=== PATIENT | male | born 1940 | race Caucasian/White ===

== ENCOUNTER 2016-05-09 18:01 | Emergency (ER) | payer MEDICARE, BC ==
[2016-06-22] MEDS ORDERED: LIPITOR20 MG PO (09:25)
[2016-06-22] MEDS ORDERED: NORVASC10 MG PO (09:25)
[2016-06-22] MEDS ORDERED: METOPROLOL TART25 MG PO (09:46)
[2016-06-22] MEDS ORDERED: BUSPIRONE HCL10 MG PO (09:46)
[2016-06-22] MEDS ORDERED: COLACE100 MG PO (09:46)
[2016-06-22] MEDS ORDERED: PROSCAR5 MG PO (09:47)
[2016-06-22] MEDS ORDERED: ZESTRIL40 MG PO (09:48)
[2016-06-22] MEDS ORDERED: ALLEGRA ALLERG180 MG PO (09:48)
[2016-06-22] MEDS ORDERED: HYDROCHLOROTHIA25 MG PO (09:48)
[2016-06-22] MEDS ORDERED: IPRAT-ALBUT 0.5-3 ML NEB (09:48)
[2016-06-22] MEDS ORDERED: HYDROXYZINE HCL10 MG PO (09:49)
[2016-06-22] MEDS ORDERED: MUCINEX600 MG PO (09:54)
[2016-06-22] MEDS ORDERED: PROAIR HFA8.5 GM IH (09:54)
[2016-06-22] MEDS ORDERED: ONCE DAILY1 EACH PO (09:54)
[2016-06-22] MEDS ORDERED: FLOMAX0.4 MG PO (09:55)
[2016-06-22] MEDS ORDERED: ACETAMINOPHEN325 MG PO (10:14)
[2016-06-22] MEDS ORDERED: SYMBICORT 16010.2 GM IH (10:14)
[2016-06-22] MEDS ORDERED: HYDRALAZINE HCL50 MG PO (10:15)
[2016-06-22] MEDS ORDERED: PREDNISONE10 MG PO (10:15)
[2016-06-22] MEDS ORDERED: FLONASE ALLER15.8 ML NS (10:15)
== END 2016-05-10 04:08 | disposition short-term general hospital (02) ==
LOC: ER 18:01
DX: J44.1 Chronic obstructive pulmonary disease with (acute) exacerbation (principal); I11.0 Hypertensive heart disease with heart failure; I50.9 Heart failure, unspecified; F41.1 Generalized anxiety disorder; R53.1 Weakness; R31.9 Hematuria, unspecified; E78.5 Hyperlipidemia, unspecified; F17.210 Nicotine dependence, cigarettes, uncomplicated; Z79.82 Long term (current) use of aspirin; Z79.899 Other long term (current) drug therapy; Z88.5 Allergy status to narcotic agent; Z88.8 Allergy status to other drugs, medicaments and biological substances
CPT/HCPCS: 36415; 51702; 87502; 96365; 96375; 96376; J0360; J1940; J2060

== ENCOUNTER 2016-06-04 16:39 | Emergency (ER) | payer MEDICARE, BC ==
[2016-06-22] MEDS ORDERED: LIPITOR20 MG PO (09:25)
[2016-06-22] MEDS ORDERED: NORVASC10 MG PO (09:25)
[2016-06-22] MEDS ORDERED: BUSPIRONE HCL10 MG PO (09:46)
[2016-06-22] MEDS ORDERED: METOPROLOL TART25 MG PO (09:46)
[2016-06-22] MEDS ORDERED: COLACE100 MG PO (09:46)
[2016-06-22] MEDS ORDERED: PROSCAR5 MG PO (09:47)
[2016-06-22] MEDS ORDERED: ZESTRIL40 MG PO (09:48)
[2016-06-22] MEDS ORDERED: ALLEGRA ALLERG180 MG PO (09:48)
[2016-06-22] MEDS ORDERED: IPRAT-ALBUT 0.5-3 ML NEB (09:48)
[2016-06-22] MEDS ORDERED: HYDROCHLOROTHIA25 MG PO (09:48)
[2016-06-22] MEDS ORDERED: HYDROXYZINE HCL10 MG PO (09:49)
[2016-06-22] MEDS ORDERED: ONCE DAILY1 EACH PO (09:54)
[2016-06-22] MEDS ORDERED: MUCINEX600 MG PO (09:54)
[2016-06-22] MEDS ORDERED: PROAIR HFA8.5 GM IH (09:54)
[2016-06-22] MEDS ORDERED: FLOMAX0.4 MG PO (09:55)
[2016-06-22] MEDS ORDERED: SYMBICORT 16010.2 GM IH (10:14)
[2016-06-22] MEDS ORDERED: ACETAMINOPHEN325 MG PO (10:14)
[2016-06-22] MEDS ORDERED: HYDRALAZINE HCL50 MG PO (10:15)
[2016-06-22] MEDS ORDERED: PREDNISONE10 MG PO (10:15)
[2016-06-22] MEDS ORDERED: FLONASE ALLER15.8 ML NS (10:15)
== END 2016-06-04 20:44 | disposition home or self-care (01) ==
LOC: ER 16:39
DX: R07.89 Other chest pain (principal); J44.9 Chronic obstructive pulmonary disease, unspecified; I10 Essential (primary) hypertension; M19.90 Unspecified osteoarthritis, unspecified site; F17.210 Nicotine dependence, cigarettes, uncomplicated; Z79.82 Long term (current) use of aspirin; Z79.899 Other long term (current) drug therapy; Z88.8 Allergy status to other drugs, medicaments and biological substances
CPT/HCPCS: 36415

== ENCOUNTER 2016-06-07 18:45 | Emergency (ER) | payer MEDICARE, BC ==
[2016-06-22] MEDS ORDERED: NORVASC10 MG PO (09:25)
[2016-06-22] MEDS ORDERED: LIPITOR20 MG PO (09:25)
[2016-06-22] MEDS ORDERED: COLACE100 MG PO (09:46)
[2016-06-22] MEDS ORDERED: BUSPIRONE HCL10 MG PO (09:46)
[2016-06-22] MEDS ORDERED: METOPROLOL TART25 MG PO (09:46)
[2016-06-22] MEDS ORDERED: PROSCAR5 MG PO (09:47)
[2016-06-22] MEDS ORDERED: IPRAT-ALBUT 0.5-3 ML NEB (09:48)
[2016-06-22] MEDS ORDERED: HYDROCHLOROTHIA25 MG PO (09:48)
[2016-06-22] MEDS ORDERED: ALLEGRA ALLERG180 MG PO (09:48)
[2016-06-22] MEDS ORDERED: ZESTRIL40 MG PO (09:48)
[2016-06-22] MEDS ORDERED: HYDROXYZINE HCL10 MG PO (09:49)
[2016-06-22] MEDS ORDERED: PROAIR HFA8.5 GM IH (09:54)
[2016-06-22] MEDS ORDERED: ONCE DAILY1 EACH PO (09:54)
[2016-06-22] MEDS ORDERED: MUCINEX600 MG PO (09:54)
[2016-06-22] MEDS ORDERED: FLOMAX0.4 MG PO (09:55)
[2016-06-22] MEDS ORDERED: ACETAMINOPHEN325 MG PO (10:14)
[2016-06-22] MEDS ORDERED: SYMBICORT 16010.2 GM IH (10:14)
[2016-06-22] MEDS ORDERED: FLONASE ALLER15.8 ML NS (10:15)
[2016-06-22] MEDS ORDERED: PREDNISONE10 MG PO (10:15)
[2016-06-22] MEDS ORDERED: HYDRALAZINE HCL50 MG PO (10:15)
== END 2016-06-07 22:17 | disposition home or self-care (01) ==
LOC: ER 18:45
DX: R10.84 Generalized abdominal pain (principal); R04.0 Epistaxis; D64.9 Anemia, unspecified; I10 Essential (primary) hypertension; J44.9 Chronic obstructive pulmonary disease, unspecified; E78.5 Hyperlipidemia, unspecified; F17.210 Nicotine dependence, cigarettes, uncomplicated; Z79.899 Other long term (current) drug therapy; Z79.82 Long term (current) use of aspirin; Z88.8 Allergy status to other drugs, medicaments and biological substances; Z88.5 Allergy status to narcotic agent
CPT/HCPCS: 36415; 96374; 96375

== ENCOUNTER 2016-06-16 01:17 | Emergency (ER) | payer MEDICARE, BC ==
[2016-06-22] MEDS ORDERED: NORVASC10 MG PO (09:25)
[2016-06-22] MEDS ORDERED: LIPITOR20 MG PO (09:25)
[2016-06-22] MEDS ORDERED: COLACE100 MG PO (09:46)
[2016-06-22] MEDS ORDERED: BUSPIRONE HCL10 MG PO (09:46)
[2016-06-22] MEDS ORDERED: METOPROLOL TART25 MG PO (09:46)
[2016-06-22] MEDS ORDERED: PROSCAR5 MG PO (09:47)
[2016-06-22] MEDS ORDERED: ALLEGRA ALLERG180 MG PO (09:48)
[2016-06-22] MEDS ORDERED: IPRAT-ALBUT 0.5-3 ML NEB (09:48)
[2016-06-22] MEDS ORDERED: ZESTRIL40 MG PO (09:48)
[2016-06-22] MEDS ORDERED: HYDROCHLOROTHIA25 MG PO (09:48)
[2016-06-22] MEDS ORDERED: HYDROXYZINE HCL10 MG PO (09:49)
[2016-06-22] MEDS ORDERED: MUCINEX600 MG PO (09:54)
[2016-06-22] MEDS ORDERED: PROAIR HFA8.5 GM IH (09:54)
[2016-06-22] MEDS ORDERED: ONCE DAILY1 EACH PO (09:54)
[2016-06-22] MEDS ORDERED: FLOMAX0.4 MG PO (09:55)
[2016-06-22] MEDS ORDERED: SYMBICORT 16010.2 GM IH (10:14)
[2016-06-22] MEDS ORDERED: ACETAMINOPHEN325 MG PO (10:14)
[2016-06-22] MEDS ORDERED: HYDRALAZINE HCL50 MG PO (10:15)
[2016-06-22] MEDS ORDERED: PREDNISONE10 MG PO (10:15)
[2016-06-22] MEDS ORDERED: FLONASE ALLER15.8 ML NS (10:15)
== END 2016-06-16 05:09 | disposition home or self-care (01) ==
LOC: ER 01:17
DX: I10 Essential (primary) hypertension (principal); E78.5 Hyperlipidemia, unspecified; J44.9 Chronic obstructive pulmonary disease, unspecified; F17.210 Nicotine dependence, cigarettes, uncomplicated
CPT/HCPCS: 36415; 96374; 96375; J0360

== ENCOUNTER 2016-06-17 10:03 | Emergency (ER) | payer MEDICARE, BC ==
[2016-06-22] MEDS ORDERED: LIPITOR20 MG PO (09:25)
[2016-06-22] MEDS ORDERED: NORVASC10 MG PO (09:25)
[2016-06-22] MEDS ORDERED: BUSPIRONE HCL10 MG PO (09:46)
[2016-06-22] MEDS ORDERED: COLACE100 MG PO (09:46)
[2016-06-22] MEDS ORDERED: METOPROLOL TART25 MG PO (09:46)
[2016-06-22] MEDS ORDERED: PROSCAR5 MG PO (09:47)
[2016-06-22] MEDS ORDERED: ZESTRIL40 MG PO (09:48)
[2016-06-22] MEDS ORDERED: IPRAT-ALBUT 0.5-3 ML NEB (09:48)
[2016-06-22] MEDS ORDERED: HYDROCHLOROTHIA25 MG PO (09:48)
[2016-06-22] MEDS ORDERED: ALLEGRA ALLERG180 MG PO (09:48)
[2016-06-22] MEDS ORDERED: HYDROXYZINE HCL10 MG PO (09:49)
[2016-06-22] MEDS ORDERED: ONCE DAILY1 EACH PO (09:54)
[2016-06-22] MEDS ORDERED: MUCINEX600 MG PO (09:54)
[2016-06-22] MEDS ORDERED: PROAIR HFA8.5 GM IH (09:54)
[2016-06-22] MEDS ORDERED: FLOMAX0.4 MG PO (09:55)
[2016-06-22] MEDS ORDERED: SYMBICORT 16010.2 GM IH (10:14)
[2016-06-22] MEDS ORDERED: ACETAMINOPHEN325 MG PO (10:14)
[2016-06-22] MEDS ORDERED: PREDNISONE10 MG PO (10:15)
[2016-06-22] MEDS ORDERED: HYDRALAZINE HCL50 MG PO (10:15)
[2016-06-22] MEDS ORDERED: FLONASE ALLER15.8 ML NS (10:15)
== END 2016-06-17 12:33 | disposition critical access hospital (66) ==
LOC: ER 10:03
DX: J44.1 Chronic obstructive pulmonary disease with (acute) exacerbation (principal); I10 Essential (primary) hypertension; F17.210 Nicotine dependence, cigarettes, uncomplicated; Z79.899 Other long term (current) drug therapy; Z79.82 Long term (current) use of aspirin; Z88.8 Allergy status to other drugs, medicaments and biological substances
CPT/HCPCS: 96374

== ENCOUNTER 2016-06-17 10:03 | Observation (INO) | payer MEDICARE, BC ==
[2016-06-22] MEDS ORDERED: LIPITOR20 MG PO (09:25)
[2016-06-22] MEDS ORDERED: NORVASC10 MG PO (09:25)
[2016-06-22] MEDS ORDERED: BUSPIRONE HCL10 MG PO (09:46)
[2016-06-22] MEDS ORDERED: COLACE100 MG PO (09:46)
[2016-06-22] MEDS ORDERED: METOPROLOL TART25 MG PO (09:46)
[2016-06-22] MEDS ORDERED: PROSCAR5 MG PO (09:47)
[2016-06-22] MEDS ORDERED: HYDROCHLOROTHIA25 MG PO (09:48)
[2016-06-22] MEDS ORDERED: IPRAT-ALBUT 0.5-3 ML NEB (09:48)
[2016-06-22] MEDS ORDERED: ZESTRIL40 MG PO (09:48)
[2016-06-22] MEDS ORDERED: ALLEGRA ALLERG180 MG PO (09:48)
[2016-06-22] MEDS ORDERED: HYDROXYZINE HCL10 MG PO (09:49)
[2016-06-22] MEDS ORDERED: PROAIR HFA8.5 GM IH (09:54)
[2016-06-22] MEDS ORDERED: MUCINEX600 MG PO (09:54)
[2016-06-22] MEDS ORDERED: ONCE DAILY1 EACH PO (09:54)
[2016-06-22] MEDS ORDERED: FLOMAX0.4 MG PO (09:55)
[2016-06-22] MEDS ORDERED: ACETAMINOPHEN325 MG PO (10:14)
[2016-06-22] MEDS ORDERED: SYMBICORT 16010.2 GM IH (10:14)
[2016-06-22] MEDS ORDERED: FLONASE ALLER15.8 ML NS (10:15)
[2016-06-22] MEDS ORDERED: HYDRALAZINE HCL50 MG PO (10:15)
[2016-06-22] MEDS ORDERED: PREDNISONE10 MG PO (10:15)
== END 2016-06-21 16:00 | disposition home or self-care (01) ==
LOC: ER 10:03 → MED 12:34
PROVIDERS: ADMIT Internal Medicine
DX: J44.1 Chronic obstructive pulmonary disease with (acute) exacerbation (principal); J40 Bronchitis, not specified as acute or chronic; I10 Essential (primary) hypertension; E78.5 Hyperlipidemia, unspecified; F41.9 Anxiety disorder, unspecified; F17.200 Nicotine dependence, unspecified, uncomplicated; Z88.8 Allergy status to other drugs, medicaments and biological substances; Z79.2 Long term (current) use of antibiotics; Z79.899 Other long term (current) drug therapy
CPT/HCPCS: 36415; 93306; 96365; 96366; 96372; 96376; 97161-GP; G0378; J1650

== ENCOUNTER 2016-07-05 08:02 | Emergency (ER) | payer MEDICARE, BC ==
[~2016-07-05 08:02] MED LIST: ACETAMINOPHEN325 MG PO; ALLEGRA ALLERG180 MG PO; BUSPIRONE HCL10 MG PO; COLACE100 MG PO; FLOMAX0.4 MG PO; FLONASE ALLER15.8 ML NS; HYDRALAZINE HCL50 MG PO; HYDROCHLOROTHIA25 MG PO; HYDROXYZINE HCL10 MG PO; IPRAT-ALBUT 0.5-3 ML NEB; LIPITOR20 MG PO; METOPROLOL TART25 MG PO; MUCINEX600 MG PO; NORVASC10 MG PO; ONCE DAILY1 EACH PO; PREDNISONE10 MG PO; PROAIR HFA8.5 GM IH; PROSCAR5 MG PO; SYMBICORT 16010.2 GM IH; ZESTRIL40 MG PO
== END 2016-07-05 09:30 | disposition home or self-care (01) ==
LOC: ER 08:02
DX: F41.9 Anxiety disorder, unspecified (principal); J44.9 Chronic obstructive pulmonary disease, unspecified; I10 Essential (primary) hypertension; E78.5 Hyperlipidemia, unspecified; F17.210 Nicotine dependence, cigarettes, uncomplicated; Z79.82 Long term (current) use of aspirin; Z79.899 Other long term (current) drug therapy; Z88.5 Allergy status to narcotic agent; Z88.8 Allergy status to other drugs, medicaments and biological substances

== ENCOUNTER 2016-07-06 20:55 | Emergency (ER) | payer MEDICARE, BC | END 2016-07-07 00:07 | disposition home or self-care (01) | LOC: ER 20:55 | DX: R20.2 Paresthesia of skin (principal); G89.29 Other chronic pain; M54.5 Low back pain; F41.9 Anxiety disorder, unspecified; D64.9 Anemia, unspecified; I10 Essential (primary) hypertension; E78.5 Hyperlipidemia, unspecified; J44.9 Chronic obstructive pulmonary disease, unspecified; F17.210 Nicotine dependence, cigarettes, uncomplicated; Z88.5 Allergy status to narcotic agent; Z88.8 Allergy status to other drugs, medicaments and biological substances; Z79.82 Long term (current) use of aspirin; Z79.899 Other long term (current) drug therapy | CPT/HCPCS: 36415; 87502 ==